=== PATIENT | female | born 1995 | race Hispanic/Latino ===

== ENCOUNTER 2019-01-22 00:20 | Emergency (ER) | payer MEDICAID ==
[2019-01-22 00:41] LABS: APPEARANCE,URINE Clear (CLEAR); BILIRUBIN,URINE Negative (NEGATIVE); COLOR,URINE Yellow (YELLOW); GLUCOSE, URINE (UA) Negative (NEGATIVE); KETONES,URINE Negative (NEGATIVE); LEUKOCYTE ESTERASE ,URINE Moderate (NEGATIVE); NITRATE,URINE Negative (NEGATIVE); OCCULT BLOOD,URINE Large (NEGATIVE); PH,URINE 7.5 (5.0-8.0); PROTEIN,URINE Negative (NEGATIVE)
[2019-01-22 00:53] LABS: HCG,QUAL RESULT NEGATIVE (NEGATIVE)
[2019-01-22 01:01] LABS: BACTERIA,URINE Moderate /HPF (None Seen)
[2019-01-22 01:02] LABS: SPERM,URINE Rare /HPF (None Seen)
[2019-01-22] MEDS ORDERED: PHENAZOPYRIDINE HCL 200 MG TABLET ONE (01:39)
[2019-01-22] MEDS ORDERED: LIDOCAINE HCL-MPF 1% 2ML VIAL ONE (01:39)
[2019-01-22] MEDS ORDERED: CEFTRIAXONE SODIUM 1 GM ONE (01:39)
== END 2019-01-22 01:49 | disposition home or self-care (01) ==
LOC: EDH 00:20
DX: N30.00 Acute cystitis without hematuria (principal)
CPT/HCPCS: 81001; 81025; 87486; 87797; 96372; 99284; J0696; J3490